=== PATIENT | male | born 1970 | race Two or more races ===

== ENCOUNTER 2019-11-04 23:31 | Inpatient (IN) | payer MEDICAID, OTHER ==
[~2019-11-04] VITALS: Ht 182.9 cm; Wt 156.0 kg
[2019-11-04] MEDS ORDERED: ETOMIDATE (2MG/ML) 20ML VIAL IV ONE (23:45)
[2019-11-04] MEDS ORDERED: SUCCINYLCHOLINE CHLORIDE 20 MG/ML 10ML VIAL IV ONE (23:45)
[2019-11-05] MEDS ORDERED: SODIUM CHLORIDE 0.9% 2,000 ML IV ONE (00:15)
[2019-11-05] MEDS ORDERED: ONDANSETRON HCL 4 MG/2 ML VIAL IV ONE (00:15)
[2019-11-05 00:55] LABS: Basophils # (auto) 0.1 uL; Basophils % (auto) 0.6 % (0.0-2.0); Eosinophils # (auto) 0.2 uL; Eosinophils % (auto) 2.2 % (0.0-7.0); Hematocrit 34.7 % (41.0-53.0); Hemoglobin 11.3 g/dL (13.5-17.5); Lymphocytes # (auto) 2.5 uL; Lymphocytes % (auto) 27.3 % (10.0-50.0); Mean Corpuscular Hemoglobin 28.5 pg (28.0-32.0); Mean Corpuscular Hgb Conc. 32.5 g/dL (32.0-36.0); Mean Corpuscular Volume 87.7 fL (80.0-100.0); Monocytes # (auto) 0.8 uL; Monocytes % (auto) 9.1 % (0.0-12.0); Neutrophils # (auto) 5.5 uL; Neutrophils % (auto) 60.8 % (37.0-80.0); Nucleated Red Blood Cells % 0.1 %; Platelet Count (auto) 233 10^3/uL (140-450); Red Blood Cells 3.96 10^6/uL (4.5-5.90); Red Cell Distribution Width 16.5 % (11.8-14.3); White Blood Cell 9.1 10^3/uL (4.4-10.8)
[2019-11-05 01:15] LABS: Alanine Aminotransferase 35 U/L (16-61); Albumin 3.1 g/dL (3.4-5.0); Anion Gap 19 (5-15); Aspartate Aminotransferase 65 U/L (15-37); BUN/Creatinine Ratio 12.5; Blood Urea Nitrogen 17 mg/dL (7-18); Calcium 7.5 mg/dL (8.5-10.1); Carbon Dioxide 15 mmol/L (21-32); Chloride 98 mmol/L (98-107); GFR African American 71 mL/min; GFR Non-African American 59 mL/min; Glucose 288 mg/dL (74-106); Magnesium 1.6 mg/dL (1.6-2.6); Potassium 3.3 mmol/L (3.5-5.1); Sodium 132 mmol/L (136-145)
[2019-11-05 01:20] LABS: Alkaline Phosphatase 218 U/L (45-117); Bilirubin, Total 0.4 mg/dL (0.2-1.0); Total Protein 7.8 g/dL (6.4-8.2)
[2019-11-05 01:20] LABS: Lactic Acid w/Reflex 9.1 mmol/L (0.4-2.0)
[2019-11-05] MEDS ORDERED: LORazepam 2MG/ML-1ML VIAL IV ONE ×2 (01:45)
[2019-11-05 01:58] LABS: Urine Bacteria NONE SEEN /hpf (None Seen); Urine Blood TRACE /uL (Negative); Urine Budding Yeast FEW /hpf (None Seen); Urine Hyaline Cast MANY /lpf (0 - 2); Urine Mucus FEW (None Seen); Urine Specific Gravity 1.018 (1.001-1.035); Urine WBC 2 /hpf (0 - 3)
[2019-11-05 02:04] LABS: Amphetamine Screen, Urine NEGATIVE (NEGATIVE); Barbiturate Scree,Urine NEGATIVE (NEGATIVE); Benzodiazephine Screen, Urine NEGATIVE (NEGATIVE); Cannabinoid Screen, Urine NEGATIVE (NEGATIVE); Cocaine Screen, Urine NEGATIVE (NEGATIVE); Opiate Scree,Urine NEGATIVE (NEGATIVE); Phencyclidine Screen, Urine NEGATIVE (NEGATIVE)
[2019-11-05] MEDS ORDERED: SODIUM BICARBONATE 8.4 % INJ 50ML VIAL IV ONE ×2 (02:30)
[2019-11-05] MEDS ORDERED: NOREPINEPHRINE 8 MG/250ML KIT 250 ML IV SCH (03:08)
[2019-11-05 03:13] VITALS: BP 103/65
[2019-11-05] MEDS ORDERED: SODIUM CHLORIDE 0.9% 1,000 ML IV ONE (04:00)
[2019-11-05 04:05] VITALS: BP 102/45
[2019-11-05] MEDS ORDERED: SODIUM CHLORIDE 0.9% 1,000 ML IV SCH (04:06)
[2019-11-05] MEDS ORDERED: DEXTROSE (50%) 50ML SYRG IV PRN ×2 (04:15→13:15)
[2019-11-05] MEDS ORDERED: LORazepam 0.5 MG TAB PO PRN (04:15)
[2019-11-05] MEDS ORDERED: MORPHINE SULF INJ 2 MG/ML SYRINGE 1ML IV PRN (04:15)
[2019-11-05] MEDS ORDERED: NITROGLYCERIN 0.4 MG SL TAB SL PRN (04:15)
[2019-11-05] MEDS ORDERED: ACETAMINOPHEN 325 MG TAB PO PRN (04:15)
--- NOTE | 2019-11-05 06:30 | NUR ---
REMOVED PT FROM CPAP AND PLACED PT ON 8L SIMPLE MASK, SPO2 99%, HR 77, RR 20 WITH DIMINISHED BS. PT AWAKE AND ALERT WITH GOOD INSPIRATORY EFFORT. RN MADE AWARE. WILL CONTINUE TO MONITOR PT.
[2019-11-05] MEDS: ACCU-CHEK COMFORT CURVE STRIP VI SCH ×4 (08:23→22:00)
[2019-11-05] MEDS: InsuLIN REG 1unit/0.01ml Soln (100units/ml) SC SCH ×3 (08:24→17:50)
[2019-11-05] MEDS: ONDANSETRON HCL 4 MG/2 ML VIAL IV PRN ×2 (08:53→21:11)
[2019-11-05] MEDS: MORPHINE SULFATE 4 MG/ML SYR/VIAL IV PRN ×2 (08:53→20:52)
[2019-11-05 09:50] LABS: Lactic Acid w/Reflex 5.4 mmol/L (0.4-2.0)
[2019-11-05] MEDS ORDERED: FUROSEMIDE 20 MG/2 ML VIAL IV ONE (11:30)
[2019-11-05] MEDS ORDERED: IPRATROPIUM BROM 0.5 MG/2.5ML INH SOL NEB PRN (11:45)
[2019-11-05] MEDS ORDERED: chlordiazePOXIDE HCL 5 MG CAP PO PRN (11:45)
[2019-11-05] MEDS ORDERED: ALBUTEROL SULF 2.5 MG/0.5ML(0.5%) NEB SOLN NEB PRN (11:45)
[2019-11-05] MEDS ORDERED: THIAMINE 100mg/ml INJ (200mg/2ml VIAL) IV ONE (11:45)
[2019-11-05] MEDS ORDERED: FOLIC ACID 1 MG in D5W 5% 50 ML IV ONE (11:45)
[2019-11-05] MEDS: ALBUTEROL SULF 2.5 MG/0.5ML(0.5%) NEB SOLN NEB SCH ×2 (13:26→18:25)
[2019-11-05] MEDS: IPRATROPIUM BROM 0.5 MG/2.5ML INH SOL NEB SCH ×2 (13:26→18:25)
[2019-11-05 14:02] LABS: Basophils # (auto) 0 uL; Basophils % (auto) 0.4 % (0.0-2.0); Eosinophils # (auto) 0 uL; Eosinophils % (auto) 0.4 % (0.0-7.0); Hematocrit 32.6 % (41.0-53.0); Hemoglobin 10.8 g/dL (13.5-17.5); Lymphocytes # (auto) 0.9 uL; Mean Corpuscular Hemoglobin 28.2 pg (28.0-32.0); Mean Corpuscular Volume 85.7 fL (80.0-100.0); Monocytes # (auto) 0.7 uL; Monocytes % (auto) 8.8 % (0.0-12.0); Neutrophils # (auto) 5.9 uL; Neutrophils % (auto) 78.4 % (37.0-80.0); Platelet Count (auto) 201 10^3/uL (140-450); Red Blood Cells 3.81 10^6/uL (4.5-5.90); White Blood Cell 7.5 10^3/uL (4.4-10.8)
[2019-11-05 14:19] LABS: Albumin 3.1 g/dL (3.4-5.0); Calcium 7.3 mg/dL (8.5-10.1); Potassium 4.2 mmol/L (3.5-5.1)
[2019-11-05 14:22] LABS: BUN/Creatinine Ratio 13.7; Bilirubin, Total 0.4 mg/dL (0.2-1.0); Partial Thromboplastin Time 45.4 sec (23.64-32.05); Total Protein 7.1 g/dL (6.4-8.2)
[2019-11-05 14:50] LABS: INR 6.73 (0.9-1.15)
--- NOTE | 2019-11-05 17:00 | NUR ---
Admit to [facility] admitted to [facility] via gurney on traveling accountant, and portable 02 @ 4.5L. Patient transfered to bed, connected to unit monitoring and oxygen. Patient oriented to Tamara troy RN, unit, room, bed, and unit policies regarding patient care and visiting hours. All questions and concerns addressed, patient verbalized understanding. NOTE: PATIENT UNABLE TO LIE FLAT IN BED, SOB WITH MIN EXERTION BUT RECOVERS TO NO SOB WITH REST. PATIENT C/O GEN SORENESS "FROM CPR". SEE PHYSICAL ASSESSMENT FLOW SHEET FOR ASSESSMENT.
--- NOTE | 2019-11-05 18:25 | NUR ---
Respiratory note: at bedside for med kady irving.
[2019-11-05 18:30] VITALS: BP 154/85
--- NOTE | 2019-11-05 18:30 | NUR ---
PATIENT C/O LEFT KNEE PAIN - STATES "I THINK IT'S FROM THE FALL AT HOME". LEFT KNEE WARM AND TENDER TO TOUCH WITHOUT REDNESS NOTED-CALL PLACED TO DR RIOS HOSPITALIST DISTRIBUTION DISPATCHER
[2019-11-05 20:00] VITALS: BP 139/78
[2019-11-05] MEDS ORDERED: INSULIN LANTUS (GLARGINE) 1 /0.01ml (100units/ml) SC SCH (22:00)
[2019-11-05] MEDS ORDERED: InsuLIN REG 1unit/0.01ml Soln (100units/ml) SC SCH (22:00)
--- NOTE | 2019-11-05 22:35 | NUR ---
Respiratory note: PAGED TO BEDSIDE FOR CPAP. PLACED PT ON UNIT B7, UNIT IS CONNECTED TO RED OUTLET AND O2 SOURCE, ALARMS ARE SET AND AUDIBLE, AMBU BAG AND MASK AT BEDSIDE. CPAP OF [id number], 35% FIO2. PLACED ON SIZE (L) MASK NO REDNESS OR BREAKDOWN NOTED PRIOR TO PLACEMENT. BS ARE DIMINISHED CLEAR T/O. RN MAYA AWARE OF PLACEMENT.
[2019-11-05 23:53] VITALS: BP 111/55
--- NOTE | 2019-11-06 00:23 | NUR ---
Respiratory note: AT BEDSIDE FOR ROUTINE CPAP CHECK. NO CHANGES MADE AT THIS TIME, BS ARE DIMINISHED T/O, MED NEB TX GIVEN INLINE WITHOUT ADVERSE REACTION NOTED. WILL CONTINUE TO MONITOR.
[2019-11-06] MEDS: ALBUTEROL SULF 2.5 MG/0.5ML(0.5%) NEB SOLN NEB SCH ×4 (00:24→18:21)
[2019-11-06] MEDS: IPRATROPIUM BROM 0.5 MG/2.5ML INH SOL NEB SCH ×4 (00:24→18:21)
[2019-11-06 02:20] VITALS: BP 111/55
--- NOTE | 2019-11-06 02:20 | NUR ---
Respiratory note: AT BEDSIDE FOR ROUTINE CPAP CHECK. NO CHANGES MADE AT THIS TIME, PT COMFORTABLY SLEEPING AT THIS TIME. WILL CONTINUE TO MONITOR.
[2019-11-06 04:00] VITALS: BP 107/51
--- NOTE | 2019-11-06 04:50 | NUR ---
Pt was on Bipap for sleep, came off after 0400 vital signs. Blood cultures came back positive Gram positive cocci in clusters. paged and new orders for vanco 1gm IV q12 hours given and pharmacy to track. Will continue to monitor. Stable and afebrile at this time.
[2019-11-06] MEDS ORDERED: VANCOMYCIN 1GM/250ML 250 ML IV SCH ×3 (05:00→16:00)
[2019-11-06 05:22] LABS: Basophils # (auto) 0 uL; Basophils % (auto) 0.4 % (0.0-2.0); Eosinophils # (auto) 0.1 uL; Eosinophils % (auto) 0.7 % (0.0-7.0); Hematocrit 32.7 % (41.0-53.0); Hemoglobin 10.7 g/dL (13.5-17.5); Lymphocytes # (auto) 0.9 uL; Lymphocytes % (auto) 10.2 % (10.0-50.0); Mean Corpuscular Hgb Conc. 32.9 g/dL (32.0-36.0); Mean Corpuscular Volume 85.3 fL (80.0-100.0); Monocytes # (auto) 0.9 uL; Monocytes % (auto) 10.2 % (0.0-12.0); Neutrophils % (auto) 78.5 % (37.0-80.0); Platelet Count (auto) 195 10^3/uL (140-450); Red Blood Cells 3.83 10^6/uL (4.5-5.90); Red Cell Distribution Width 16.1 % (11.8-14.3); White Blood Cell 8.9 10^3/uL (4.4-10.8)
[2019-11-06 05:48] LABS: BUN/Creatinine Ratio 25.3; Calcium 7.4 mg/dL (8.5-10.1)
[2019-11-06 05:51] LABS: INR 5.9 (0.9-1.15)
--- NOTE | 2019-11-06 06:56 | NUR ---
Respiratory note: RECEIVED PT ALREADY OFF BIPAP. PT ON 4L NC, HR 106, RR 14, POX 96%. BREATH SOUNDS DIMINISHED THROUGHOUT. ADMINISTERED MEDNEB TX, NO ADVERSE REACTIONS NOTED. PLACED PT BACK ON 4L NC. WILL RETURN FOR NEXT SCHEDULED TX.
[2019-11-06] MEDS: ACCU-CHEK COMFORT CURVE STRIP VI SCH ×3 (07:00→18:37)
--- NOTE | 2019-11-06 07:00 | NUR ---
Pt extremely needy. Calls 3-5 times an hour for assistance for multiple issues. Pleasant but demanding in needs. Educated pt the need for IV antibiotics. Pt seemed ok then called all family members crying. Very emotional. Report given, care endorsed.
[2019-11-06] MEDS ORDERED: VANCOMYCIN PER PHARMACY 0 MG IV SCH (07:15)
--- NOTE | 2019-11-06 07:50 | NUR ---
called and stated Lactic acid was high 1 month ago when pt was admitted to [facility]. IV antibiotics were given there. Last week pt was prescribed Doxycycline and pt finished the 1 week dose.
[2019-11-06 08:00] VITALS: BP 153/63
[2019-11-06] MEDS: InsuLIN REG 1unit/0.01ml Soln (100units/ml) SC SCH ×3 (08:08→18:38)
--- NOTE | 2019-11-06 08:30 | NUR ---
Opening Shift Note Assumed care of patient @ 0730, awake and alert. No S/S of distress/SOB. Patient saturation 98% at 4 LPM oxygen via nasal cannula. Patient complaining of buttocks pain and LT knee pain 07/08. Will give [place] PRN and inform MD. LT AC IV occluded and tender, discontinued. See interventions for complete assessment. Bed locked on low position, side rails up x2, bed alarms on at all times, call barnhart within reach, instructed on POC and to call for assist PRN, will continue to monitor for changes Q1hr and PRN.
[2019-11-06] MEDS: HYDROcodone-ACET 5/325MG TAB PO PRN ×3 (08:36→20:53)
[2019-11-06] MEDS ORDERED: DILT240C49 PO (09:36)
[2019-11-06] MEDS ORDERED: ATOR20TA50 PO (09:36)
[2019-11-06] MEDS ORDERED: SERT-274 PO (09:36)
[2019-11-06] MEDS ORDERED: SERT-275 PO (09:36)
[2019-11-06] MEDS ORDERED: ALBUAER3 IN (09:36)
[2019-11-06] MEDS ORDERED: DICL1GEL35 TD (09:36)
[2019-11-06] MEDS ORDERED: DIPH25CA66 PO (09:36)
[2019-11-06] MEDS ORDERED: POTA10TA51 PO (09:36)
[2019-11-06] MEDS ORDERED: METF-371 PO (09:36)
[2019-11-06] MEDS ORDERED: AMIO200T33 PO (09:36)
[2019-11-06] MEDS ORDERED: WARF5TAB71 PO (09:36)
[2019-11-06] MEDS ORDERED: LISI-285 PO (09:36)
[2019-11-06] MEDS ORDERED: THIAMINE 100mg/ml INJ (200mg/2ml VIAL) IV SCH (10:00)
[2019-11-06] MEDS ORDERED: FOLIC ACID 1 MG in D5W 5% 50 ML IV SCH (10:00)
--- NOTE | 2019-11-06 10:43 | NUR ---
Dr Berry at bedside, updated on patient's status. Patient seen and examined. Plan to transfer patient to [place]. Will carry out new orders.
[2019-11-06] MEDS ORDERED: AMIODARONE HCL 200 MG TAB PO ONE (10:45)
[2019-11-06] MEDS ORDERED: POTASSIUM CHL 10 Meq TABLET PO ONE (10:45)
[2019-11-06] MEDS ORDERED: FUROSEMIDE 40 MG/4 ML VIAL IV ONE (10:45)
[2019-11-06] MEDS ORDERED: SERTRALINE HCL 50 MG TAB PO ONE (11:00)
--- NOTE | 2019-11-06 11:23 | NUR ---
Grullon catheter dc'd Order to discontinue grullon catheter. Grullon dc'd with clean technique following deflation of balloon. Patient tolerated well with no complaints of pain. Continue care.
[2019-11-06 11:52] LABS: Free T3 2.2 pg/mL (2.3-4.2); Free T4 (Free Thyroxine) 1.29 ng/dL (0.89-1.76)
--- NOTE | 2019-11-06 12:08 | NUR ---
WOUND CARE NOTE: Wound care in to see patient per wound care request regarding " skin discoloration on sacrum" that are noted present on admission. Bedside nurse took photograph of patient's skin issue upon admission for reference. Patient is 49 y/o male admitted for Syncope, Hypotension,Possible Arrest, ETOH. Patient with history of A Fib, htn, DM. Patient is resting in SDU bed in Rm. 266. Patient is awake, alert and oriented. He's self turn and reposition and his current Roshan score is 18. Patient's at bedside. Skin assessment done with the assistance of patient's nurse, MANNY Morales. Noted patient's R great toe has 0.5x0.5cm intact, dry blood blister, area is clean and dry, left open to air. Patient's L and R inner gluteal noted with dark red, blanchable skin discoloration with some excoriations, consistent with intertriginous rash, moisture associated skin damage. Patient's at bedside reported that patient is soiled and wet during ambulance transport "for fourteen hours". Staff initiated cleaning and application of Z Guard cream to sacral, buttocks per MD order. Patient tolerated well. RECOMMENDATION: Nursing to continue BID/PRN dressing change to sacral, buttocks MASD per MD order, redistribute pressure points with pillows;elevate heels on pillows; continue monitoring by wound care while patient is hospitalized. Addendum: 11/06/19 at 1651 by Joaquina Beyer RN Amended: Links added.
[2019-11-06 12:11] VITALS: BP 109/48
--- NOTE | 2019-11-06 12:51 | NUR ---
transfer Em at [facility] is working on getting pt [facility] bed at [place]. Primary RN informed to have everything copied for transfer
--- NOTE | 2019-11-06 13:18 | NUR ---
Received call from Ailyn, updated on patient's status.
--- NOTE | 2019-11-06 15:03 | NUR ---
Received call from Mary abbott Lena. Updated that patient's Lactic level has been drawn pending result.
[2019-11-06 15:08] LABS: Lactic Acid w/Reflex 2.1 mmol/L (0.4-2.0)
--- NOTE | 2019-11-06 15:29 | NUR ---
Received call from Ailyn, informed patient's Lactic Acid level 2.1.
--- NOTE | 2019-11-06 16:30 | NUR ---
Patient's temperature 99.8 F orally, cooling measures done. Will continue to monitor.
--- NOTE | 2019-11-06 17:45 | NUR ---
Received call from [facility] ([phone]) with the following transfer information: patient transferring to [facility] Tele 307, number to call report [phone], under Dr Jacobson, ETA for transport 0830 PM via ACLS protocol. Will facilitate.
[2019-11-06] MEDS ORDERED: FUROSEMIDE 40 MG/4 ML VIAL IV SCH (18:00)
--- NOTE | 2019-11-06 18:00 | NUR ---
Patient's temperature 98.2F orally. Will continue to monitor.
[2019-11-06 18:05] VITALS: BP 117/57
--- NOTE | 2019-11-06 18:58 | NUR ---
Attempted to give report t at telephone number [phone] but nobody is picking up.
--- NOTE | 2019-11-06 19:58 | NUR ---
Received call from Rosy with [facility] ([phone]) updated on patient status and vital signs
[2019-11-06 20:00] VITALS: BP 151/86
--- NOTE | 2019-11-06 20:00 | NUR ---
family at bedside updated on patient status all answers addressed at this time.
--- NOTE | 2019-11-06 20:32 | NUR ---
Called [facility] for report spoke with sylvia aldana rn for report. phone number [phone]
--- NOTE | 2019-11-06 21:21 | NUR ---
[facility] at bedside need different ambulance r/t needing winged gurney. eta 15 minutes from now
--- NOTE | 2019-11-06 21:57 | NUR ---
[facility] at Bedside to strip picker patient [facility] transfer to [facility]. belongings transferred with patient.
[2019-11-06] MEDS ORDERED: POTASSIUM CHL 10 Meq TABLET PO SCH (22:00)
--- NOTE | 2019-11-07 08:49 | NUR ---
Assessment Pt is a 49 yr old alert and oriented male. Pt lives with , Marisa Saenz, who is his emergency contact at [phone]. Prior to admit, pt receives assistance with bathing, dressing, cooking, and cleaning, from his . Pt recently lost some mobility and was using a walker or w/c to assist with ambulation. Pt was brought to the hospital due to passing out while walking and not breathing. Pt's gave him CPR until the ambulance came. Pt stated that neither him or his is working and they only get food stamps, they have recently applied for SSI. SW educated pt about [employer] and, upon interest, gave them a paper with information and contact info. Pt stated that he plans to be transferred within network once he is medically stable. Pt could benefit from in home 02 to assist with oxygen levels upon d/c. Pt will be transported via medical transport to an in network facility once medically stable. Addendum: 11/07/19 at 0858 by NI VASQUEZ Amended: Links added.
[2019-11-07] MEDS ORDERED: FOLIC ACID 1 MG TAB PO SCH (10:00)
[2019-11-07] MEDS ORDERED: AMIODARONE HCL 200 MG TAB PO SCH (10:00)
[2019-11-07] MEDS ORDERED: SERTRALINE HCL 50 MG TAB PO SCH (10:00)
[2019-11-07] MEDS ORDERED: THIAMINE HCL 100 MG TAB PO SCH (10:00)
== END 2019-11-06 21:57 | disposition short-term general hospital (02) | DRG 775 ==
LOC: EDBD 23:31 → ER 23:34 → TELE 23:35 → DOU IN ICU 11-05 16:58
PROVIDERS: ADMIT Hospitalist; ATTEND Internal Medicine
PROC: 5A09357 Assistance with Respiratory Ventilation, Less than 24 Consecutive Hours, Continuous Positive Airway Pressure (ICD-10-PCS; principal; 2019-11-05)
PROC: 5A09357 Assistance with Respiratory Ventilation, Less than 24 Consecutive Hours, Continuous Positive Airway Pressure (ICD-10-PCS; 2019-11-06)
DX: F10.129 Alcohol abuse with intoxication, unspecified (principal); J96.00 Acute respiratory failure, unspecified whether with hypoxia or hypercapnia; G92 Toxic encephalopathy; J81.1 Chronic pulmonary edema; R18.8 Other ascites; D68.69 Other thrombophilia; D68.8 Other specified coagulation defects; E11.65 Type 2 diabetes mellitus with hyperglycemia; E44.1 Mild protein-calorie malnutrition; K74.60 Unspecified cirrhosis of liver; E66.01 Morbid (severe) obesity due to excess calories; I48.20 Chronic atrial fibrillation, unspecified; I10 Essential (primary) hypertension; I45.10 Unspecified right bundle-branch block; R07.89 Other chest pain; Y90.7 Blood alcohol level of 200-239 mg/100 ml; E87.2 Acidosis; E78.5 Hyperlipidemia, unspecified; G47.30 Sleep apnea, unspecified; Z68.42 Body mass index [BMI] 45.0-49.9, adult; Z79.84 Long term (current) use of oral hypoglycemic drugs
CPT/HCPCS: 36415; 36600; 51702; 71045; 73562; 80048; 80053; 80307; 80320; 81001; 82805; 82962; 83036; 83605; 83735; 83880; 84439; 84443; 84481; 84484; 85025; 85610; 85730; 87040; 87077; 87186; 94640; 94660; 96361; 96365; 96375; G0378; J0330; J1815; J2405; J7060